=== PATIENT | male | born 1940 | race American Indian/Alaskan Native ===

== ENCOUNTER 2021-04-27 22:34 | Emergency (ER) | payer MEDICARE ==
[2021-04-27] MEDS ORDERED: ONDANSETRON 4 MG ODT TAB PO ONE (22:37)
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
--- NOTE | 2021-04-28 00:30 | Cat Scan Report ---
CT head without contrast INDICATION : Post-M.V.C., now with persistent vomiting. TECHNIQUE: Axial imaging performed from the skull apex through the skull base without the use of con trast. All CT scans at this location are performed using CT dose reduction for ALARA by means of aut omated exposure control. COMPARISON: None FINDINGS: Parenchyma: Left subdural hematoma with a maximal thickness of approximately 1 cm involving the front al and temporal regions. There is lesser involvement of the parietal region. Approximately 2 mm of le ft-to-right shift is present. Negative for mass or stroke. Ventricles: Ventricles are normal in size and appear symmetric. Soft tissues: Soft tissues including the orbits appear normal. Bones: No acute osseous abnormality. Sinuses: Sinuses and mastoid air cells are clear. IMPRESSION: Large left subdural hematoma with minimal left to right shift. CRITICAL RESULT: Time of Discovery: 11:20 PM Time of Communication: 11:23 PM Licensed Practitioner Receiving Report: Dr. Roberson Read Back Performed: Yes. Signer Name: Jimbo Ac MD Signed: 04/28/2021 12:26 AM Workstation Name: [id number]
--- NOTE | 2021-04-28 00:41 | Cat Scan Report ---
CT cervical spine wo con INDICATION: Post-M.V.C., now with persistent vomiting. TECHNIQUE: All CT scans at this location are performed using the following dose modulation technique: Automated exposure control. CONTRAST: None. COMPARISON: None available. FINDINGS: Satisfactory alignment without vertebral compression. Moderate degenerative disc disease ex tends from C5-T1. The soft tissues are unremarkable. Evaluation of the lung apices is unremarkable. IMPRESSION: 1. Negative for fracture. 2. Degenerative disc disease C5-T1. Signer Name: Jimbo Ac MD Signed: 04/28/2021 12:36 AM Workstation Name: [id number]
[2021-04-28] MEDS ORDERED: levETIRAcetam 1000 MG/NS 0.75% 1,000 MG/100 ML BAG IV ONE (00:48)
[2021-04-28 00:52] LABS: Mean Corpuscular HGB Conc 30 % (32-34); Mean Corpuscular Volume 75 fl (84-94); Platelet Count 640 K/mm3 (140-440)
[2021-04-28 00:55] LABS: Hematocrit 34.6 % (35.5-45.6); Hemoglobin 10.3 gm/dl (11.8-15.2); Red Cell Distribution Width 22.8 % (13.2-15.2)
[2021-04-28 01:09] LABS: INR 1.04 (0.87-1.13)
[2021-04-28 01:10] LABS: Partial Thromboplastin Time 30.5 Sec. (24.2-36.6)
[2021-04-28 01:13] LABS: Alanine Aminotransferase 14 units/L (7-56); Albumin 5.1 g/dL (3.9-5); BUN/Creatinine Ratio 19; Blood Urea Nitrogen 25 mg/dL (9-20); Calcium 9.6 mg/dL (8.4-10.2); Hemolysis Index 11
[2021-04-28 01:33] VITALS: BP 180/94
[2021-04-28 01:39] LABS: Total Cells Counted 100
[2021-04-28 01:40] LABS: Anisocytosis Few; Schistocytes Few
[2021-04-28] MEDS ORDERED: DESMOPRESSIN ACETATE 28 MCG in SODIUM CHLORIDE 0.9% 50 ML IV ONE (01:45)
== END 2021-04-28 01:35 | disposition home or self-care (01) ==
LOC: EDBD 22:34 → ED 22:34
DX: R51.9 Headache, unspecified (principal); R11.2 Nausea with vomiting, unspecified; I10 Essential (primary) hypertension; Z79.899 Other long term (current) drug therapy; R79.1 Abnormal coagulation profile; V89.2XXA Person injured in unspecified motor-vehicle accident, traffic, initial encounter; Y93.89 Activity, other specified; Y92.488 Other paved roadways as the place of occurrence of the external cause; Y99.8 Other external cause status
CPT/HCPCS: 36415; 70450; 72125; 80053; 85007; 85025; 85610; 85730; 96374; 96375; 99285; J1953; J2597; 96365; J3490; Q0162